=== PATIENT | female | born 1940 | race Caucasian/White ===

== ENCOUNTER 2019-11-09 13:25 | Outpatient (CLI) | payer MEDICARE, OTHER ==
[~2019-11-09 13:25] MED LIST: BARIUM SULFATE 340 ML SUSP.RECON***PROCEDURE AREA ONLY**DONT ENTER PO ONE
== END 2019-11-09 23:59 | disposition home or self-care (01) ==
LOC: RAD 13:25
PROVIDERS: ATTEND Internal Medicine
DX: R13.10 Dysphagia, unspecified (principal)
CPT/HCPCS: 74230

== ENCOUNTER 2020-03-24 13:03 | Inpatient (IN) | payer MEDICARE, OTHER ==
[~2020-03-24] VITALS: Ht 154.9 cm; Wt 76.8 kg
--- NOTE | 2020-03-24 13:34 | NUR ---
lizeth daughter in law [phone] son jl [phone]
[2020-03-24] MEDS ORDERED: methylPREDNISolone sod succ 125mg/2ml vial IV ONE (14:15)
[2020-03-24 14:33] LABS: BASOPHILS % (AUTO) 0.4 % (0-1); EOSINOPHILS % (AUTO) 0.6 % (0-6); HEMATOCRIT 34.4 % (35.0-45.0); LYMPHOCYTES # (AUTO) 0.8 X10'3 (1.1-4.8); MEAN CORPUSCULAR HEMOGLOBIN 29.6 PG (27.0-31.0); MEAN CORPUSCULAR HGB CONC 34.8 g/dL (33.0-36.5); MEAN CORPUSCULAR VOLUME 85.1 FL (78-98); MEAN PLATELET VOLUME 6.9 FL (7.4-10.4); MONOCYTES # (AUTO) 0.7 X10'3 (0-0.9); MONOCYTES % (AUTO) 9.9 % (2-12); NEUTROPHILS # (AUTO) 5.3 X10'3 (1.8-7.7); NEUTROPHILS % (AUTO) 77.1 % (42-75); PLATELET COUNT 232 X10'3 (140-440); RED BLOOD COUNT 4.04 X10'6 (4.20-5.60); RED CELL DISTRIBUTION WIDTH 15.4 % (11.5-14.5); WHITE BLOOD COUNT 6.8 X10'3 (4.5-11.0)
[2020-03-24 14:58] LABS: ALANINE AMINOTRANSFERASE 20 U/L (12-78); ALBUMIN 2.8 G/DL (3.4-5.0); ALBUMIN/GLOBULIN RATIO 0.6 (1.1-1.5); ALKALINE PHOSPHATASE 65 IU/L (46-116); ANION GAP 13 (8-16); ASPARTATE AMINO TRANSFERASE 67 U/L (10-37); BILIRUBIN,TOTAL 1.1 MG/DL (0.1-1.0); BLOOD UREA NITROGEN 37 MG/DL (7-18); BUN/CREATININE RATIO 20.8 (6.6-38.0); CALCIUM 8.7 MG/DL (8.5-10.1); CHLORIDE 96 MMOL/L (99-107); CREATININE 1.78 MG/DL (0.40-0.90); GLUCOSE 106 MG/DL (70-104); SODIUM 133 MMOL/L (135-145); TOTAL CARBON DIOXIDE 24.5 MMOL/L (24-32); TOTAL PROTEIN 7.7 G/DL (6.4-8.2); eGFR 27 ML/MIN
[2020-03-24 15:00] LABS: POTASSIUM 2.6 MMOL/L (3.5-5.1)
[2020-03-24] MEDS ORDERED: normal saline 1000ML IV soln IVB ONE (15:15)
[2020-03-24] MEDS ORDERED: ondansetron/PF 4mg/2ml inj IV ONE (15:15)
[2020-03-24] MEDS: potassium Cl 10 mEq/100mL bag IV SCH ×2 (15:40→17:11)
[2020-03-24 15:49] LABS: LACTATE DEHYDROGENASE 452 U/L (81-234)
[2020-03-24 16:01] LABS: ABG BASE EXCESS -1.5 mmol/L (-2.0-2.0); ABG HCO3 21.5 mmol/L (22.0-26.0); ABG PCO2 (T) 30.9 mmHg (32.0-45.0); ALLEN'S TEST POSITIVE; FCOHb 0.4 % (0.0-3.9); FLOW 2 L/min; FMetHb 0.3 % (0.0-1.5); FO2Hb 93.3 % (94-97); TOTAL HEMOGLOBIN 11.4 G/dl (12.0-16.0)
[2020-03-24 17:15] LABS: ABG BASE EXCESS -3.3 mmol/L (-2.0-2.0); ABG HCO3 20.1 mmol/L (22.0-26.0); ABG OXYGEN SATURATION 85.4 % (94-97); ABG PCO2 (T) 30.6 mmHg (32.0-45.0); ABG PO2 (T) 52.5 mmHg (75.0-100.0); ALLEN'S TEST POSITIVE; FCOHb 0.7 % (0.0-3.9); FMetHb 0.3 % (0.0-1.5); FO2Hb 84.5 % (94-97); TOTAL HEMOGLOBIN 11.1 G/dl (12.0-16.0)
[2020-03-24] MEDS ORDERED: magnesium 4gm in 100ml NS 100 ML IV PRN (18:25)
[2020-03-24] MEDS ORDERED: magnesium 2GM in 50ml NS 50 ML IV PRN (18:25)
[2020-03-24] MEDS ORDERED: HYDROcodone/acetaminophen 10/325mg tab PO PRN (18:25)
[2020-03-24] MEDS ORDERED: HYDROcodone/acetaminophen 5mg/325mg tablet PO PRN (18:25)
[2020-03-24] MEDS ORDERED: potassium Cl 20 mEq SR tablet PO PRN (18:25)
[2020-03-24] MEDS ORDERED: acetaminophen 325mg tablet PO PRN (18:25)
[2020-03-24] MEDS ORDERED: ondansetron/PF 4mg/2ml inj IV PRN (18:25)
[2020-03-24] MEDS ORDERED: potassium CL 10mEq/100ml bag 100 ML IV PRN ×2 (18:25)
[2020-03-24] MEDS ORDERED: dexamethasone inj 6 MG in normal saline 100ml IV soln 100 ML IV ONE (18:25)
[2020-03-24] MEDS ORDERED: ipratropium/albuterol 3ml nebule NEB PRN (18:25)
[2020-03-24] MEDS ORDERED: dexamethasone sod phosphate 10mg/ml inj IV STA (18:37)
[2020-03-24] MEDS ORDERED: PARO10TA4 PO (18:54)
[2020-03-24] MEDS ORDERED: LEVO50TA8 PO (18:54)
[2020-03-24] MEDS ORDERED: WARF6TAB49 PO (18:54)
[2020-03-24] MEDS ORDERED: OXYB5TAB16 PO (18:54)
[2020-03-24] MEDS ORDERED: OMEP-50 PO (18:54)
[2020-03-24] MEDS ORDERED: ATOR20TA66 PO (18:54)
[2020-03-24] MEDS ORDERED: LOSA1TAB36 PO (18:54)
[2020-03-24] MEDS ORDERED: FLEC50TA3 PO (18:54)
[2020-03-24] MEDS ORDERED: TRAZ-256 PO (18:54)
[2020-03-24] MEDS ORDERED: enoxaparin 40mg/0.4ml syringe SQ SCH (20:00)
[2020-03-24 20:12] LABS: PARTIAL THROMBOPLASTIN TIME 44 SECONDS (22-32)
[2020-03-24] MEDS ORDERED: warfarin 3mg tablet PO ONE (21:35)
[2020-03-24] MEDS: normal saline 1000ml 1,000 ML IV SCH (21:57)
[2020-03-24] MEDS: flecainide 50mg tablet PO SCH (21:58)
[2020-03-24] MEDS: oxybutynin 5mg tablet PO SCH (21:58)
[2020-03-24] MEDS: docusate sod 100mg capsule PO SCH (21:58)
--- NOTE | 2020-03-24 22:30 | NUR ---
I have received report from Jesus BRIGGS and had the opportunity to ask questions and assume patient care.
[2020-03-24 23:00] VITALS: BP 113/73
[2020-03-24] MEDS: K and/or MAG REPLACEMENT MC SCH (23:00)
--- NOTE | 2020-03-24 23:00 | NUR ---
pt to floor w/ son, fellow pt-4 RNs for 2 pts (Jesus King, Ursula Zamora)
[2020-03-25] MEDS: acetaminophen 325mg tablet PO PRN (01:28)
[2020-03-25 01:54] LABS: POTASSIUM 3.9 MMOL/L (3.5-5.1)
--- NOTE | 2020-03-25 03:30 | NUR ---
railroad signal technician called to report pt displaying a widening QT from .44 to .56 and has been in sinus arrhythmia & sinus jessica trending in the 40'-50's. Called Hospitalist to inform, no new orders at this, time will continue to monitor. Pt A/Ox4, no distress. 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
[2020-03-25 06:00] VITALS: BP 137/72
[2020-03-25 07:07] LABS: BASOPHILS % (AUTO) 0.1 % (0-1); EOSINOPHILS % (AUTO) 0 % (0-6); HEMATOCRIT 32.3 % (35.0-45.0); HEMOGLOBIN 11.3 g/dl (12.0-16.0); LYMPHOCYTES # (AUTO) 0.7 X10'3 (1.1-4.8); LYMPHOCYTES % (AUTO) 21.6 % (21-51); MEAN CORPUSCULAR HEMOGLOBIN 29.6 PG (27.0-31.0); MEAN CORPUSCULAR HGB CONC 34.9 g/dL (33.0-36.5); MEAN CORPUSCULAR VOLUME 84.8 FL (78-98); MEAN PLATELET VOLUME 6.9 FL (7.4-10.4); MONOCYTES # (AUTO) 0.2 X10'3 (0-0.9); MONOCYTES % (AUTO) 7.1 % (2-12); NEUTROPHILS # (AUTO) 2.3 X10'3 (1.8-7.7); NEUTROPHILS % (AUTO) 71.2 % (42-75); PLATELET COUNT 234 X10'3 (140-440); RED BLOOD COUNT 3.82 X10'6 (4.20-5.60); RED CELL DISTRIBUTION WIDTH 15.8 % (11.5-14.5); WHITE BLOOD COUNT 3.2 X10'3 (4.5-11.0)
[2020-03-25 07:09] LABS: ALANINE AMINOTRANSFERASE 21 U/L (12-78); ALBUMIN 2.4 G/DL (3.4-5.0); ALBUMIN/GLOBULIN RATIO 0.5 (1.1-1.5); ALKALINE PHOSPHATASE 57 IU/L (46-116); ANION GAP 12 (8-16); ASPARTATE AMINO TRANSFERASE 65 U/L (10-37); BILIRUBIN,TOTAL 0.9 MG/DL (0.1-1.0); BLOOD UREA NITROGEN 34 MG/DL (7-18); BUN/CREATININE RATIO 25.2 (6.6-38.0); CALCIUM 8.8 MG/DL (8.5-10.1); CHLORIDE 108 MMOL/L (99-107); CREATININE 1.35 MG/DL (0.40-0.90); GLUCOSE 149 MG/DL (70-104); MAGNESIUM 1.8 MG/DL (1.5-2.4); POTASSIUM 3.9 MMOL/L (3.5-5.1); SODIUM 142 MMOL/L (135-145); TOTAL CARBON DIOXIDE 22.3 MMOL/L (24-32); TOTAL PROTEIN 7.1 G/DL (6.4-8.2); eGFR 38 ML/MIN
[2020-03-25] MEDS ORDERED: dexamethasone inj 6 MG in normal saline 100ml IV soln 100 ML IV SCH (08:00)
[2020-03-25] MEDS: K and/or MAG REPLACEMENT MC SCH ×2 (08:00→20:00)
[2020-03-25] MEDS: docusate sod 100mg capsule PO SCH ×2 (08:00→19:27)
[2020-03-25] MEDS: levoTHYROXINE 25mcg tablet PO SCH (09:30)
[2020-03-25] MEDS: losartan 50mg tablet PO SCH (09:30)
[2020-03-25] MEDS: traZODone 50mg tablet PO SCH (09:30)
[2020-03-25] MEDS: flecainide 50mg tablet PO SCH ×2 (09:30→19:27)
[2020-03-25] MEDS: PARoxetine 10mg tablet PO SCH (09:30)
[2020-03-25] MEDS: dexamethasone sod phosphate 10mg/ml inj IV SCH (09:30)
[2020-03-25] MEDS: oxybutynin 5mg tablet PO SCH ×2 (09:30→19:27)
[2020-03-25] MEDS: HYDROchlorothiazide 12.5mg capsule PO SCH (09:30)
[2020-03-25] MEDS: pantoprazole 40mg Tablet.DR PO SCH (09:30)
[2020-03-25] MEDS: normal saline 1000ml 1,000 ML IV SCH ×2 (09:30→19:25)
[2020-03-25] MEDS: atorvastatin 20mg tablet PO SCH (09:30)
[2020-03-25 10:00] VITALS: BP 106/62
[2020-03-25] MEDS ORDERED: R PO PRN (10:15)
[2020-03-25 18:00] VITALS: BP 96/51
--- NOTE | 2020-03-25 18:26 | NUR ---
Gave report to August RN, transferred care.
[2020-03-25] MEDS ORDERED: warfarin 3mg tablet PO ONE (21:00)
[2020-03-25] MEDS ORDERED: ipratropium/albuterol 3ml nebule NEB SCH (21:00)
[2020-03-25 22:00] VITALS: BP 104/68
[2020-03-26 04:48] VITALS: BP 99/52
[2020-03-26 06:43] LABS: BASOPHILS % (AUTO) 0.2 % (0-1); EOSINOPHILS % (AUTO) 0 % (0-6); HEMOGLOBIN 10.8 g/dl (12.0-16.0); LYMPHOCYTES % (AUTO) 10.5 % (21-51); MEAN CORPUSCULAR HEMOGLOBIN 28.8 PG (27.0-31.0); MEAN CORPUSCULAR HGB CONC 33.9 g/dL (33.0-36.5); MEAN CORPUSCULAR VOLUME 84.9 FL (78-98); MONOCYTES % (AUTO) 10.9 % (2-12); NEUTROPHILS # (AUTO) 7.6 X10'3 (1.8-7.7); NEUTROPHILS % (AUTO) 78.4 % (42-75); PLATELET COUNT 305 X10'3 (140-440); RED BLOOD COUNT 3.77 X10'6 (4.20-5.60); WHITE BLOOD COUNT 9.7 X10'3 (4.5-11.0)
[2020-03-26 06:46] LABS: ALANINE AMINOTRANSFERASE 21 U/L (12-78); ALBUMIN 2.3 G/DL (3.4-5.0); ALBUMIN/GLOBULIN RATIO 0.5 (1.1-1.5); ALKALINE PHOSPHATASE 58 IU/L (46-116); ANION GAP 11 (8-16); ASPARTATE AMINO TRANSFERASE 64 U/L (10-37); BILIRUBIN,TOTAL 0.7 MG/DL (0.1-1.0); BLOOD UREA NITROGEN 29 MG/DL (7-18); BUN/CREATININE RATIO 24.4 (6.6-38.0); C-REACTIVE PROTEIN 6.13 MG/DL (0.0-0.5); CALCIUM 8.5 MG/DL (8.5-10.1); CHLORIDE 107 MMOL/L (99-107); CREATININE 1.19 MG/DL (0.40-0.90); GLUCOSE 114 MG/DL (70-104); MAGNESIUM 1.6 MG/DL (1.5-2.4); POTASSIUM 3.4 MMOL/L (3.5-5.1); SODIUM 142 MMOL/L (135-145); TOTAL CARBON DIOXIDE 24.4 MMOL/L (24-32); TOTAL PROTEIN 6.7 G/DL (6.4-8.2); eGFR 44 ML/MIN
[2020-03-26] MEDS: normal saline 1000ml 1,000 ML IV SCH ×2 (07:55→19:58)
[2020-03-26] MEDS: traZODone 50mg tablet PO SCH (08:00)
[2020-03-26] MEDS: K and/or MAG REPLACEMENT MC SCH ×2 (08:00→20:00)
[2020-03-26] MEDS ORDERED: azithromycin 250mg tablet PO SCH (08:00)
[2020-03-26] MEDS: dexamethasone sod phosphate 10mg/ml inj IV SCH (09:09)
[2020-03-26] MEDS: pantoprazole 40mg Tablet.DR PO SCH (09:10)
[2020-03-26] MEDS: docusate sod 100mg capsule PO SCH ×2 (09:10→19:58)
[2020-03-26] MEDS: PARoxetine 10mg tablet PO SCH (09:10)
[2020-03-26] MEDS: levoTHYROXINE 25mcg tablet PO SCH (09:10)
[2020-03-26] MEDS: oxybutynin 5mg tablet PO SCH ×2 (09:14→19:58)
[2020-03-26] MEDS: atorvastatin 20mg tablet PO SCH (09:14)
[2020-03-26] MEDS: flecainide 50mg tablet PO SCH (09:14)
[2020-03-26] MEDS: HYDROchlorothiazide 12.5mg capsule PO SCH (09:14)
[2020-03-26] MEDS: losartan 50mg tablet PO SCH (09:14)
[2020-03-26] MEDS: potassium Cl 20 mEq SR tablet PO PRN (15:45)
[2020-03-26] MEDS ORDERED: temazepam 15mg capsule PO PRN (19:35)
[2020-03-26] MEDS: lactobacillus rhamnosus 10,000 MMU CELLS/CAPSULE PO SCH (19:58)
[2020-03-26 20:43] VITALS: BP 100/48
[2020-03-26] MEDS ORDERED: MESSAGE TO NURSING PO ONE (21:00)
[2020-03-27] MEDS: flecainide 50mg tablet PO SCH ×3 (00:31→20:07)
[2020-03-27] MEDS: potassium Cl 20 mEq SR tablet PO PRN (00:32)
[2020-03-27 04:55] VITALS: BP 115/56
--- NOTE | 2020-03-27 06:05 | NUR ---
received report from sara, rn
[2020-03-27] MEDS: K and/or MAG REPLACEMENT MC SCH ×2 (07:00→20:00)
[2020-03-27 07:24] LABS: BASOPHILS % (AUTO) 0.6 % (0-1); EOSINOPHILS % (AUTO) 0.1 % (0-6); HEMATOCRIT 31.9 % (35.0-45.0); HEMOGLOBIN 10.9 g/dl (12.0-16.0); LYMPHOCYTES # (AUTO) 1.3 X10'3 (1.1-4.8); LYMPHOCYTES % (AUTO) 16.7 % (21-51); MEAN CORPUSCULAR HEMOGLOBIN 29.6 PG (27.0-31.0); MEAN CORPUSCULAR VOLUME 86.9 FL (78-98); MEAN PLATELET VOLUME 6.7 FL (7.4-10.4); MONOCYTES # (AUTO) 0.7 X10'3 (0-0.9); MONOCYTES % (AUTO) 9.5 % (2-12); NEUTROPHILS # (AUTO) 5.7 X10'3 (1.8-7.7); NEUTROPHILS % (AUTO) 73.1 % (42-75); PLATELET COUNT 318 X10'3 (140-440); RED BLOOD COUNT 3.67 X10'6 (4.20-5.60); RED CELL DISTRIBUTION WIDTH 16.2 % (11.5-14.5); WHITE BLOOD COUNT 7.7 X10'3 (4.5-11.0)
[2020-03-27] MEDS: docusate sod 100mg capsule PO SCH ×2 (07:33→20:07)
[2020-03-27] MEDS: PARoxetine 10mg tablet PO SCH (07:34)
[2020-03-27] MEDS: levoTHYROXINE 25mcg tablet PO SCH (07:34)
[2020-03-27] MEDS: atorvastatin 20mg tablet PO SCH (07:35)
[2020-03-27] MEDS: lactobacillus rhamnosus 10,000 MMU CELLS/CAPSULE PO SCH ×2 (07:35→20:07)
[2020-03-27] MEDS: oxybutynin 5mg tablet PO SCH ×2 (07:35→20:07)
[2020-03-27] MEDS: pantoprazole 40mg Tablet.DR PO SCH (07:36)
[2020-03-27] MEDS: losartan 50mg tablet PO SCH (07:36)
[2020-03-27] MEDS: dexamethasone sod phosphate 10mg/ml inj IV SCH (07:38)
[2020-03-27] MEDS: traZODone 50mg tablet PO SCH (07:41)
[2020-03-27 07:46] VITALS: BP 136/66
[2020-03-27 07:51] LABS: ALANINE AMINOTRANSFERASE 19 U/L (12-78); ALBUMIN 2.2 G/DL (3.4-5.0); ALBUMIN/GLOBULIN RATIO 0.5 (1.1-1.5); ALKALINE PHOSPHATASE 53 IU/L (46-116); ANION GAP 9 (8-16); ASPARTATE AMINO TRANSFERASE 62 U/L (10-37); BILIRUBIN,TOTAL 0.5 MG/DL (0.1-1.0); BLOOD UREA NITROGEN 21 MG/DL (7-18); BUN/CREATININE RATIO 22.3 (6.6-38.0); C-REACTIVE PROTEIN 5.03 MG/DL (0.0-0.5); CALCIUM 9.1 MG/DL (8.5-10.1); CHLORIDE 113 MMOL/L (99-107); CREATININE 0.94 MG/DL (0.40-0.90); GLUCOSE 88 MG/DL (70-104); MAGNESIUM 1.5 MG/DL (1.5-2.4); POTASSIUM 4.2 MMOL/L (3.5-5.1); SODIUM 148 MMOL/L (135-145); TOTAL PROTEIN 6.5 G/DL (6.4-8.2); eGFR 57 ML/MIN
--- NOTE | 2020-03-27 08:00 | NUR ---
hospitalist aware of pt inr, no new orders at this time, continue to monitor
[2020-03-27 12:03] VITALS: BP 118/65
--- NOTE | 2020-03-27 12:30 | NUR ---
educated pt on how to utilize an IS pt demo IS IS at pt bedside at this time
[2020-03-27] MEDS ORDERED: dexamethasone 4mg/ml inj IV SCH (14:00)
[2020-03-27 17:50] VITALS: BP 117/75
--- NOTE | 2020-03-27 18:12 | NUR ---
gave report to sherrell negro
[2020-03-27 22:00] VITALS: BP 116/59
[2020-03-28 05:30] VITALS: BP 126/64
--- NOTE | 2020-03-28 06:29 | NUR ---
Report given to Destiny BRIGGS.
[2020-03-28 07:05] LABS: BASOPHILS % (AUTO) 0.3 % (0-1); EOSINOPHILS # (AUTO) 0.1 X10'3 (0-0.9); EOSINOPHILS % (AUTO) 0.6 % (0-6); HEMATOCRIT 31.2 % (35.0-45.0); HEMOGLOBIN 10.7 g/dl (12.0-16.0); LYMPHOCYTES # (AUTO) 1.4 X10'3 (1.1-4.8); LYMPHOCYTES % (AUTO) 16.8 % (21-51); MEAN CORPUSCULAR HEMOGLOBIN 29.5 PG (27.0-31.0); MEAN CORPUSCULAR HGB CONC 34.2 g/dL (33.0-36.5); MEAN CORPUSCULAR VOLUME 86.2 FL (78-98); MEAN PLATELET VOLUME 6.8 FL (7.4-10.4); MONOCYTES # (AUTO) 0.6 X10'3 (0-0.9); NEUTROPHILS # (AUTO) 6.3 X10'3 (1.8-7.7); NEUTROPHILS % (AUTO) 75.3 % (42-75); PLATELET COUNT 351 X10'3 (140-440); RED BLOOD COUNT 3.62 X10'6 (4.20-5.60); RED CELL DISTRIBUTION WIDTH 15.9 % (11.5-14.5); WHITE BLOOD COUNT 8.3 X10'3 (4.5-11.0)
[2020-03-28 07:31] LABS: ALANINE AMINOTRANSFERASE 20 U/L (12-78); ALBUMIN 2.1 G/DL (3.4-5.0); ALBUMIN/GLOBULIN RATIO 0.5 (1.1-1.5); ALKALINE PHOSPHATASE 54 IU/L (46-116); ANION GAP 10 (8-16); ASPARTATE AMINO TRANSFERASE 62 U/L (10-37); BILIRUBIN,TOTAL 0.7 MG/DL (0.1-1.0); BLOOD UREA NITROGEN 17 MG/DL (7-18); BUN/CREATININE RATIO 17.9 (6.6-38.0); C-REACTIVE PROTEIN 12.07 MG/DL (0.0-0.5); CALCIUM 9.3 MG/DL (8.5-10.1); CHLORIDE 109 MMOL/L (99-107); CREATININE 0.95 MG/DL (0.40-0.90); GLUCOSE 87 MG/DL (70-104); MAGNESIUM 1.4 MG/DL (1.5-2.4); POTASSIUM 3.9 MMOL/L (3.5-5.1); SODIUM 146 MMOL/L (135-145); TOTAL CARBON DIOXIDE 27.4 MMOL/L (24-32); TOTAL PROTEIN 6.4 G/DL (6.4-8.2); eGFR 57 ML/MIN
[2020-03-28] MEDS: losartan 50mg tablet PO SCH (08:00)
[2020-03-28] MEDS: flecainide 50mg tablet PO SCH ×2 (09:18→20:09)
[2020-03-28] MEDS: PARoxetine 10mg tablet PO SCH (09:18)
[2020-03-28] MEDS: docusate sod 100mg capsule PO SCH ×2 (09:18→20:09)
[2020-03-28] MEDS: traZODone 50mg tablet PO SCH (09:19)
[2020-03-28] MEDS: levoTHYROXINE 25mcg tablet PO SCH (09:19)
[2020-03-28] MEDS: pantoprazole 40mg Tablet.DR PO SCH (09:19)
[2020-03-28] MEDS: acetaminophen 325mg tablet PO PRN (09:20)
[2020-03-28] MEDS: atorvastatin 20mg tablet PO SCH (09:20)
[2020-03-28] MEDS: oxybutynin 5mg tablet PO SCH ×2 (09:24→20:09)
[2020-03-28] MEDS: lactobacillus rhamnosus 10,000 MMU CELLS/CAPSULE PO SCH ×2 (09:24→20:10)
[2020-03-28] MEDS: K and/or MAG REPLACEMENT MC SCH ×2 (09:25→20:00)
[2020-03-28 09:50] VITALS: BP 101/56
--- NOTE | 2020-03-28 13:05 | NUR ---
PT GIVEN OXYGEN NEEDS TEST RA AT REST 91%, RA AMBULATING 80% 3L N/C AT REST 90% 3L N/C AMB 79%
--- NOTE | 2020-03-28 13:07 | NUR ---
O2 Sat at rest on room air:_90__% If below 89%: Recovery O2 Sat at rest on _3__LPM:__84_%:_92__% via nasal cannula (mask/nasal cannula, etc..) No further documentation is necessary. If O2 Sat did not drop below 89% on room air,ambulate patient on room air. O2 Sat while ambulating on room air:_80__% Recovery O2 Sat while ambulating on _3_LPM:__90_% No further documentation is necessary. If patient does not drop below 89% while ambulating, he/she does not qualify for home O2. Addendum: 03/28/20 at 1349 by Lizz Ogden RN O2 Sat at rest on room air:_90__% If below 89%: Recovery O2 Sat at rest on __LPM:___%:___% via (mask/nasal cannula, etc..) No further documentation is necessary. If O2 Sat did not drop below 89% on room air,ambulate patient on room air. O2 Sat while ambulating on room air:__90_% Recovery O2 Sat while ambulating on _3__LPM:__84-92_% No further documentation is necessary. If patient does not drop below 89% while ambulating, he/she does not qualify for home O2.
--- NOTE | 2020-03-28 14:32 | NUR ---
CLAUDE AVELAR w/ pt regarding food preferences this admit. Pt reports no real appetite at this time w/ COVID-19 DX and is agreeable to ensure puddings TIDWM; no other preferences at this time. Addendum: 03/28/20 at [address] Amended: Links added.
--- NOTE | 2020-03-28 15:27 | NUR ---
Pt HR in the 40's per tele diet technician registered. Pt sound asleep. When woken up HR 55. Pt asymptomatic.
[2020-03-28 16:42] VITALS: BP 117/64
--- NOTE | 2020-03-28 18:06 | NUR ---
RECEIVED REPORT FROM KIARA BRIGGS AND ASSUMED PATIENT CARE
[2020-03-28] MEDS: dexamethasone 4mg/ml inj IV SCH (20:10)
[2020-03-29 05:00] VITALS: BP 136/88
[2020-03-29 07:00] LABS: BASOPHILS % (AUTO) 0 % (0-1); EOSINOPHILS # (AUTO) 0.1 X10'3 (0-0.9); EOSINOPHILS % (AUTO) 1.1 % (0-6); HEMATOCRIT 30.9 % (35.0-45.0); HEMOGLOBIN 10.5 g/dl (12.0-16.0); LYMPHOCYTES # (AUTO) 0.9 X10'3 (1.1-4.8); LYMPHOCYTES % (AUTO) 11.2 % (21-51); MEAN CORPUSCULAR HGB CONC 33.8 g/dL (33.0-36.5); MEAN CORPUSCULAR VOLUME 85.7 FL (78-98); MEAN PLATELET VOLUME 7.1 FL (7.4-10.4); MONOCYTES # (AUTO) 0.5 X10'3 (0-0.9); MONOCYTES % (AUTO) 6.4 % (2-12); NEUTROPHILS # (AUTO) 6.8 X10'3 (1.8-7.7); NEUTROPHILS % (AUTO) 81.3 % (42-75); PLATELET COUNT 391 X10'3 (140-440); RED BLOOD COUNT 3.61 X10'6 (4.20-5.60); RED CELL DISTRIBUTION WIDTH 16.2 % (11.5-14.5); WHITE BLOOD COUNT 8.4 X10'3 (4.5-11.0)
[2020-03-29 07:27] LABS: ALANINE AMINOTRANSFERASE 22 U/L (12-78); ALBUMIN 2.1 G/DL (3.4-5.0); ALBUMIN/GLOBULIN RATIO 0.4 (1.1-1.5); ALKALINE PHOSPHATASE 56 IU/L (46-116); ANION GAP 10 (8-16); ASPARTATE AMINO TRANSFERASE 48 U/L (10-37); BILIRUBIN,TOTAL 0.6 MG/DL (0.1-1.0); BLOOD UREA NITROGEN 20 MG/DL (7-18); BUN/CREATININE RATIO 20.8 (6.6-38.0); C-REACTIVE PROTEIN 15.56 MG/DL (0.0-0.5); CALCIUM 9.5 MG/DL (8.5-10.1); CHLORIDE 108 MMOL/L (99-107); CREATININE 0.96 MG/DL (0.40-0.90); GLUCOSE 145 MG/DL (70-104); MAGNESIUM 1.5 MG/DL (1.5-2.4); POTASSIUM 4.2 MMOL/L (3.5-5.1); SODIUM 145 MMOL/L (135-145); TOTAL CARBON DIOXIDE 26.9 MMOL/L (24-32); TOTAL PROTEIN 6.8 G/DL (6.4-8.2); eGFR 56 ML/MIN
[2020-03-29] MEDS: K and/or MAG REPLACEMENT MC SCH ×2 (08:00→19:47)
--- NOTE | 2020-03-29 08:11 | NUR ---
POLYSOMNOGRAPHIC TECHNOLOGIST CALLED AT 0715 PATIENT HR IN THE LOW 32-35 WOKE PATIENT. PATIENT HR NOW 111 AND O2 79 OR PROB OFF. PATIENT AWAKE WAVED, AND LYING IN BED, CALLED IN AND ASKED TO CHECK PROB ON FINGER, SHE STATED "SHE HAD JUST GONE TO THE BATHROOM"
--- NOTE | 2020-03-29 08:24 | NUR ---
PATIENT RECEIVED FOOD TRAY, LOOKS COMFORTABLE AND BREATHING WELL.
[2020-03-29 10:00] VITALS: BP 160/40
[2020-03-29] MEDS: docusate sod 100mg capsule PO SCH ×2 (10:20→20:24)
[2020-03-29] MEDS: pantoprazole 40mg Tablet.DR PO SCH (10:20)
[2020-03-29] MEDS: losartan 50mg tablet PO SCH (10:20)
[2020-03-29] MEDS: lactobacillus rhamnosus 10,000 MMU CELLS/CAPSULE PO SCH ×2 (10:20→20:24)
[2020-03-29] MEDS: levoTHYROXINE 25mcg tablet PO SCH (10:20)
[2020-03-29] MEDS: flecainide 50mg tablet PO SCH ×2 (10:20→20:24)
[2020-03-29] MEDS: oxybutynin 5mg tablet PO SCH ×2 (10:20→20:24)
[2020-03-29] MEDS: PARoxetine 10mg tablet PO SCH (10:20)
[2020-03-29] MEDS: dexamethasone 4mg/ml inj IV SCH (11:00)
[2020-03-29] MEDS ORDERED: lactose-reduced food (Ensure Enlive) - 237ml bottle PO SCH (13:00)
--- NOTE | 2020-03-29 13:11 | NUR ---
Wheeled patient to see son in [phone]
--- NOTE | 2020-03-29 15:41 | NUR ---
Initial: patient admitted with pneumonia, positive for coronavirus. Refusing meals since 03/28, prior eating 0-25% for two days, did eat 50% of lunch today. CLAUDE TC with pt regarding food preferences. Pt reports no real appetite at this time, agreeable to ensure puddings TIDWM; no other preferences at this time. Recommend trial of ensure enlive. Uses bipap while sleeping. Rec: 1. continue heart healthy diet 2. ensure pudding TID 3. Trial ensure enlive TID 4. continue bowel care 5. wt per rx Addendum: 03/29/20 at [address] Amended: Links added.
--- NOTE | 2020-03-29 18:25 | NUR ---
Patient in room ORTH[facility] 4006. I have received report from pollo BRIGGS and had the opportunity to ask questions and assume patient care.
[2020-03-29 20:15] VITALS: BP 128/68
[2020-03-29] MEDS: traZODone 50mg tablet PO SCH (20:24)
--- NOTE | 2020-03-29 21:02 | NUR ---
Called MD and received orders to change Decadron from IV to PO
[2020-03-29] MEDS: atorvastatin 20mg tablet PO SCH (21:27)
[2020-03-29] MEDS ORDERED: dexamethasone 4mg tablet PO ONE (21:30)
[2020-03-30] VITALS: BP 126/64
[2020-03-30 06:00] VITALS: BP 129/66
--- NOTE | 2020-03-30 06:26 | NUR ---
Problems reprioritized. Patient report given, questions answered & plan of care reviewed with Josie BRIGGS.
[2020-03-30] MEDS: K and/or MAG REPLACEMENT MC SCH ×2 (08:00→18:55)
[2020-03-30] MEDS ORDERED: dexamethasone 4mg/ml inj PO SCH (08:00)
[2020-03-30 09:01] LABS: C-REACTIVE PROTEIN 7.72 MG/DL (0.0-0.5); MAGNESIUM 1.5 MG/DL (1.5-2.4)
[2020-03-30] MEDS: pantoprazole 40mg Tablet.DR PO SCH (10:33)
[2020-03-30] MEDS: flecainide 50mg tablet PO SCH ×2 (10:33→20:22)
[2020-03-30] MEDS: lactobacillus rhamnosus 10,000 MMU CELLS/CAPSULE PO SCH ×2 (10:33→20:22)
[2020-03-30] MEDS: DEXAMETHASONE 6 MG TABLET PO SCH ×2 (10:33→20:22)
[2020-03-30] MEDS: oxybutynin 5mg tablet PO SCH ×2 (10:33→20:22)
[2020-03-30] MEDS: PARoxetine 10mg tablet PO SCH (10:33)
[2020-03-30] MEDS: docusate sod 100mg capsule PO SCH ×2 (10:34→20:22)
[2020-03-30] MEDS: losartan 50mg tablet PO SCH (10:34)
[2020-03-30] MEDS: levoTHYROXINE 25mcg tablet PO SCH (10:34)
--- NOTE | 2020-03-30 18:28 | NUR ---
Problems reprioritized. Patient report given, questions answered & plan of care reviewed with Ursula BRIGGS.
[2020-03-30] MEDS: NYSTATIN CREAM - 30GM TUBE TP SCH (20:00)
[2020-03-30] MEDS: traZODone 50mg tablet PO SCH (20:22)
[2020-03-30] MEDS: atorvastatin 20mg tablet PO SCH (20:22)
[2020-03-30 21:42] VITALS: BP 90/48
--- NOTE | 2020-03-31 01:30 | NUR ---
patient brought over to see her son, after he passed.
[2020-03-31 06:00] VITALS: BP 143/74
--- NOTE | 2020-03-31 06:05 | NUR ---
Problems reprioritized. Patient report given, questions answered & plan of care reviewed with CHESTER Galindo.
--- NOTE | 2020-03-31 06:40 | NUR ---
Patient in room ORTHO 4017. I have received report from Ursula BRIGGS and had the opportunity to ask questions and assume patient care.
[2020-03-31 06:56] LABS: MAGNESIUM 1.6 MG/DL (1.5-2.4)
[2020-03-31] MEDS: NYSTATIN CREAM - 30GM TUBE TP SCH (08:00)
[2020-03-31] MEDS: K and/or MAG REPLACEMENT MC SCH (08:00)
[2020-03-31 09:38] VITALS: BP_SYST 123
[2020-03-31] MEDS: levoTHYROXINE 25mcg tablet PO SCH (09:38)
[2020-03-31] MEDS: losartan 50mg tablet PO SCH (09:38)
[2020-03-31] MEDS: pantoprazole 40mg Tablet.DR PO SCH (09:39)
[2020-03-31] MEDS: docusate sod 100mg capsule PO SCH (09:39)
[2020-03-31] MEDS: lactobacillus rhamnosus 10,000 MMU CELLS/CAPSULE PO SCH (09:39)
[2020-03-31] MEDS: DEXAMETHASONE 6 MG TABLET PO SCH (09:40)
[2020-03-31] MEDS: PARoxetine 10mg tablet PO SCH (09:40)
[2020-03-31] MEDS: flecainide 50mg tablet PO SCH (09:40)
[2020-03-31] MEDS: oxybutynin 5mg tablet PO SCH (09:40)
[2020-03-31 09:46] LABS: BASOPHILS % (AUTO) 0.4 % (0-1); EOSINOPHILS % (AUTO) 0 % (0-6); HEMATOCRIT 32.2 % (35.0-45.0); HEMOGLOBIN 10.6 g/dl (12.0-16.0); LYMPHOCYTES # (AUTO) 1.3 X10'3 (1.1-4.8); LYMPHOCYTES % (AUTO) 11.5 % (21-51); MEAN CORPUSCULAR HEMOGLOBIN 28.6 PG (27.0-31.0); MEAN CORPUSCULAR VOLUME 86.6 FL (78-98); MEAN PLATELET VOLUME 7.2 FL (7.4-10.4); MONOCYTES # (AUTO) 0.8 X10'3 (0-0.9); MONOCYTES % (AUTO) 7.4 % (2-12); NEUTROPHILS # (AUTO) 9.2 X10'3 (1.8-7.7); NEUTROPHILS % (AUTO) 80.7 % (42-75); PLATELET COUNT 502 X10'3 (140-440); RED BLOOD COUNT 3.72 X10'6 (4.20-5.60); RED CELL DISTRIBUTION WIDTH 15.9 % (11.5-14.5); WHITE BLOOD COUNT 11.4 X10'3 (4.5-11.0)
[2020-03-31 10:06] LABS: ALANINE AMINOTRANSFERASE 23 U/L (12-78); ALBUMIN 2.3 G/DL (3.4-5.0); ALBUMIN/GLOBULIN RATIO 0.5 (1.1-1.5); ALKALINE PHOSPHATASE 59 IU/L (46-116); ANION GAP 11 (8-16); ASPARTATE AMINO TRANSFERASE 42 U/L (10-37); BILIRUBIN,TOTAL 0.6 MG/DL (0.1-1.0); BLOOD UREA NITROGEN 25 MG/DL (7-18); BUN/CREATININE RATIO 25.5 (6.6-38.0); CALCIUM 9.5 MG/DL (8.5-10.1); CHLORIDE 107 MMOL/L (99-107); CREATININE 0.98 MG/DL (0.40-0.90); GLUCOSE 116 MG/DL (70-104); POTASSIUM 4.1 MMOL/L (3.5-5.1); SODIUM 143 MMOL/L (135-145); TOTAL CARBON DIOXIDE 25.2 MMOL/L (24-32); TOTAL PROTEIN 6.8 G/DL (6.4-8.2); eGFR 55 ML/MIN
--- NOTE | 2020-03-31 12:48 | NUR ---
Reassessment: Pt PO continues to fluctuate 25-50% w/ refusals. Receiving ensure enlive and ensure puddings TIDWM though ONS PO not documented in EMR; RN reports poor PO thus far today. Noted pt son yesterday likely to impact already lower appetite this admit. CLAUDE d/w RN regarding diet liberalization to regular if MD agreeable given PO hx. LBM 03/30 receiving routine colace. Will continue to monitor. Rec: 1. continue heart healthy diet; liberalize to regular if MD agreeable given poor PO hx; encourage PO 2. ensure pudding TID; ensure enlive TID 3. routine bowel care 4. wt per rx Addendum: 03/31/20 at [address] Amended: Links added.
[2020-03-31] MEDS ORDERED: LOSA50TA64 PO (13:20)
[2020-03-31 14:30] LABS: ABG BASE EXCESS 0.9 mmol/L (-2.0-2.0); ABG HCO3 24.1 mmol/L (22.0-26.0); ABG OXYGEN SATURATION 96.4 % (94-97); ABG PCO2 (T) 33.6 mmHg (32.0-45.0); ABG PO2 (T) 98.6 mmHg (75.0-100.0); ALLEN'S TEST POSITIVE; FCOHb 0.2 % (0.0-3.9); FLOW 4 L/min; FMetHb 0.3 % (0.0-1.5); FO2Hb 95.9 % (94-97); TOTAL HEMOGLOBIN 11.4 G/dl (12.0-16.0)
--- NOTE | 2020-03-31 18:19 | NUR ---
patient wheeled out, iv out. all belonging and both home 02 bottles.
[2020-04-01] MEDS ORDERED: dexamethasone 4mg tablet PO SCH (20:00)
== END 2020-03-31 18:00 | disposition home or self-care (01) | DRG 177 ==
LOC: ER 13:04 → ED HOLD 18:25 → ORTHO 4S 22:46
PROVIDERS: ADMIT Family Medicine; ATTEND Family Medicine
PROC: 5A09357 Assistance with Respiratory Ventilation, Less than 24 Consecutive Hours, Continuous Positive Airway Pressure (ICD-10-PCS; principal; 2020-03-27)
PROC: 5A09357 Assistance with Respiratory Ventilation, Less than 24 Consecutive Hours, Continuous Positive Airway Pressure (ICD-10-PCS; 2020-03-28)
DX: U07.1 COVID-19 (principal); J12.89 Other viral pneumonia; J96.01 Acute respiratory failure with hypoxia; I48.20 Chronic atrial fibrillation, unspecified; N17.9 Acute kidney failure, unspecified; E03.9 Hypothyroidism, unspecified; E78.00 Pure hypercholesterolemia, unspecified; I12.9 Hypertensive chronic kidney disease with stage 1 through stage 4 chronic kidney disease, or unspecified chronic kidney disease; E78.5 Hyperlipidemia, unspecified; E87.6 Hypokalemia; I95.9 Hypotension, unspecified; N18.9 Chronic kidney disease, unspecified; R19.7 Diarrhea, unspecified; G47.33 Obstructive sleep apnea (adult) (pediatric); F32.9 Major depressive disorder, single episode, unspecified; M19.90 Unspecified osteoarthritis, unspecified site; Z79.01 Long term (current) use of anticoagulants; Z82.79 Family history of other congenital malformations, deformations and chromosomal abnormalities; Z85.3 Personal history of malignant neoplasm of breast; Z87.891 Personal history of nicotine dependence; Z90.49 Acquired absence of other specified parts of digestive tract
CPT/HCPCS: 36415; 36600; 71045; 80053; 82803; 83605; 83615; 83735; 83880; 84132; 84145; 84443; 84484; 85018; 85025; 85610; 85730; 86140; 87040; 87081; 87635; 93005; 94760; 96374; 97161; 97530; 99285; C9803; G0378; J1100; J2405; J2930; J3480; J7030; J8540